=== PATIENT | female | born 1995 | race African-American/Black ===

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

== ENCOUNTER 2017-02-07 21:36 | Emergency (ER) | payer OTHER ==
[~2017-02-07] VITALS: Ht 165.1 cm; Wt 75.0 kg
[~2017-02-07 21:36] MED LIST changes: +IBUP-1022 PO
[2017-02-07] MEDS ORDERED: AUGM875T28 PO (22:30)
[2017-02-07] MEDS ORDERED: AUGMENTIN 875 MG TAB PO ONE (22:30)
[2017-02-07 22:41] VITALS: BP 116/52
[2017-02-07 22:46] LABS: BASO # 0.1 10^3/uL (0.0-0.2); BASO % 0.9 % (0.0-1.0); EOS # 0.2 10^3/uL (0.0-0.50); EOS % 2.1 % (0.0-3.0); IMMATURE GRANULOCYTE % 0.3 % (0-0); LYMPH # 2.6 10^3/uL (1.5-6.5); MEAN CORPUSCULAR HEMOGLOBIN 30.8 pg (27.0-33.0); MEAN CORPUSCULAR HGB CONC 34.6 g/dl (32.0-36.5); MEAN CORPUSCULAR VOLUME 88.9 fl (80.0-96.0); MONO # 0.7 10^3/uL (0.0-0.8); NEUTROPHILS # 6.3 10^3/uL (1.8-7.7); NEUTROPHILS % 63.7 % (36.0-66.0); PLATELET COUNT, AUTOMATED 358 10^3/uL (150-450); WHITE BLOOD COUNT 9.9 10^3/uL (4.0-10.0)
[2017-02-07 23:11] LABS: CONTROL LINE HCG INT CTR LINE PRESENT
[2017-02-07 23:15] LABS: ALBUMIN 3.8 GM/DL (3.2-5.2); ALBUMIN/GLOBULIN RATIO 0.93 (1.00-1.93); ALKALINE PHOSPHATASE 77 U/L (45-117); ALT/SGPT 16 U/L (12-78); ANION GAP 4 MEQ/L (8-16); AST/SGOT 17 U/L (7-37); BILIRUBIN,TOTAL 0.4 MG/DL (0.2-1.0); BLOOD UREA NITROGEN 8 MG/DL (7-18); CALCIUM LEVEL 8.7 MG/DL (8.5-10.1); CARBON DIOXIDE LEVEL 30 MEQ/L (21-32); CHLORIDE LEVEL 107 MEQ/L (98-107); CREATININE FOR GFR 1.03 MG/DL (0.55-1.02); GLUCOSE, FASTING 83 MG/DL (70-105); POTASSIUM SERUM 3.7 MEQ/L (3.5-5.1); SODIUM LEVEL 141 MEQ/L (136-145); TOTAL PROTEIN 7.9 GM/DL (6.4-8.2)
[2017-02-07 23:30] LABS: HIV SCRN NEGATIVE (NEGATIVE)
[2017-02-07 23:31] LABS: CONTROL LINE INT CTR LINE PRESENT; HIV SCRN1 NEGATIVE (NEGATIVE)
[2017-02-08 11:06] LABS: HEPATITIS B SURFACE ANTIBODY POSITIVE (POSITIVE)
== END 2017-02-07 22:42 | disposition home or self-care (01) ==
LOC: M ED 21:36
DX: S01.05XA Open bite of scalp, initial encounter (principal); Z77.21 Contact with and (suspected) exposure to potentially hazardous body fluids; Y04.1XXA Assault by human bite, initial encounter; Y92.9 Unspecified place or not applicable; Y93.9 Activity, unspecified; Y99.9 Unspecified external cause status

== ENCOUNTER 2017-07-26 10:16 | Emergency (ER) | payer OTHER ==
[2017-07-26] MEDS: IBUPROFEN 600 MG TAB PO (12:03)
[2017-07-26 12:45] LABS: CONTROL LINE MONO INT CTR LINE PRESENT; MONO SCRN NEGATIVE (NEGATIVE)
[2017-07-26 12:55] LABS: INFLUENZA A AMPLIFICATION NEGATIVE (NEGATIVE); INFLUENZA B AMPLIFICATION NEGATIVE (NEGATIVE)
== END 2017-07-26 13:30 | disposition home or self-care (01) ==
LOC: M ED 10:16
DX: J06.9 Acute upper respiratory infection, unspecified (principal)
CPT/HCPCS: 71046